=== PATIENT | male | born 1990 | race Caucasian/White ===

== ENCOUNTER 2023-11-30 21:33 | Emergency (ER) | payer OTHER ==
[~2023-11-30] VITALS: Ht 190.5 cm; Wt 104.3 kg
[2023-11-30 21:46] VITALS: BP 127/67; PULSE 66; RESP 18; TEMP 98.8; O2SAT 98
[2023-12-01] VITALS: O2SAT 98
[2023-12-01] MEDS ORDERED: FAMO-90 PO (00:03)
[2023-12-01] MEDS ORDERED: CETI10CA6 PO (00:03)
[2023-12-01] MEDS: DEXAMETHASONE 4 MG/ML VIAL PO ONE (00:10)
[2023-12-01] MEDS: FAMOTIDINE 20 MG TAB PO ONE (00:10)
== END 2023-12-01 00:11 | disposition home or self-care (01) ==
LOC: MED 21:33
DX: T78.49XA Other allergy, initial encounter (principal); L50.9 Urticaria, unspecified; Z79.899 Other long term (current) drug therapy; X58.XXXA Exposure to other specified factors, initial encounter
CPT/HCPCS: 99283; J1100